=== PATIENT | male | born 1995 | race Caucasian/White ===

== ENCOUNTER 2017-01-15 13:57 | Emergency (ER) | payer BC ==
--- NOTE | 2017-01-15 14:16 | EDM.PDOC ---
ED HPI GENERAL MEDICAL PROBLEM - General Chief Complaint: Syncope Stated Complaint: DIZZY, PASSED OUT Time Seen by Provider: 01/15/17 14:16 Source of Information: Reports: Patient - History of Present Illness INITIAL COMMENTS - FREE TEXT/NARRATIVE: Patient is brought here to the ER today for evaluation for syncopal episode this morning around 10:30 AM. He is accompanied by his mother who drove him here. Patient reports that he was driving in the tractor and did start to feel lightheaded so he pulled over he feels that he passed out for approximately 30 seconds. He states that this has happened before, approximately 4 episodes in the last 18 months. Patient states that when he awoke he felt fairly normal except a little bit groggy/week. Patient denies any alcohol use recently but does drink this occasionally socially. Denies any caffeine use. Does use chewing tobacco. Does not use illicit drugs. He states that he did not eat much this morning, only had a granola bar approximately 20 ounces of water. - Related Data Allergies Allergy/AdvReac Type Severity Reaction Status Date / Time No Known Allergies Allergy Verified 01/15/17 14:54 Home Meds: Home Meds . [No Known Home Meds] 01/15/17 [History] ED ROS GENERAL - Review of Systems Review Of Systems: See Below Constitutional: Reports: Weakness. Denies: Fever, Chills, Diaphoresis, Decreased Appetite Respiratory: Reports: No Symptoms Cardiovascular: Reports: No Symptoms Endocrine: Reports: Fatigue, Low Glucose GI/Abdominal: Reports: No Symptoms Musculoskeletal: Reports: No Symptoms Skin: Reports: No Symptoms Neurological: Reports: Syncope. Denies: Confusion, Dizziness, Headache, Numbness, Paresthesia, Tingling, Tremors, Change in Speech Psychiatric: Reports: No Symptoms - Physical Exam Exam: See Below Exam Limited By: No Limitations General Appearance: Alert, WD/WN, No Apparent Distress Eye Exam: Right Eye: Normal Inspection, PERRL Ears: Normal External Exam, Normal Canal, Normal TMs Nose: Normal Inspection, Normal Mucosa Throat/Mouth: Normal Inspection, Normal Oropharynx Head Exam: Atraumatic, Normocephalic Respiratory/Chest: No Respiratory Distress, Lungs Clear, Normal Breath Sounds, No Accessory Muscle Use, Chest Non-Tender Cardiovascular: Normal Peripheral Pulses, Regular Rate, Rhythm, No Murmur GI/Abdominal: Normal Bowel Sounds, Soft, Non-Tender Neuro Exam (Abbreviated): Alert, Oriented, CN II-XII Intact, Normal Cognition, Normal Reflexes, No Motor/Sensory Deficits Psychiatric: Normal Affect, Normal Mood Skin Exam: Warm, Dry, Intact EKG INTERPRETATION EKG Date: 01/15/17 Rhythm: NSR Rate (Beats/Min): 66 EKG Interpretation Comments: Reviewed with Dr. Casiano Course - Vital Signs Last Recorded V/S: Last Vital Signs Temp 97.5 F 01/15/17 14:47 Pulse 63 01/15/17 14:47 Resp 18 01/15/17 14:47 BP 120/89 01/15/17 14:47 Pulse Ox 99 01/15/17 14:47 - Orders/Labs/Meds Orders: Active Orders 24 hr Category Date Time Status CXR [Chest 2V] [CR] Stat Exams 01/15/17 14:56 Taken DRUG SCREEN, URINE [URCHEM] Stat Lab 01/15/17 14:56 Uncollected Labs: Laboratory Tests 01/15/17 01/15/17 01/15/17 Range/Units 15:05 15:05 15:05 WBC 6.05 (4.23-9.07) K/mm3 RBC 5.67 (4.63-6.08) M/mm3 Hgb 16.9 (13.7-17.5) gm/L Hct 47.6 (40.1-51.0) % MCV 84.0 (79.0-92.2) fl MCH 29.8 (25.7-32.2) pg MCHC 35.5 (32.2-35.5) g/dl RDW Std Deviation 36.4 (35.1-43.9) fL Plt Count 207 (163-337) K/mm3 MPV 10.7 (9.4-12.3) fl Neutrophils % (Manual) 60 (40-60) % Band Neutrophils % 0 (0-10) % Lymphocytes % (Manual) 31 (20-40) % Atypical Lymphs % 0 % Monocytes % (Manual) 9 (2-10) % Eosinophils % (Manual) 0 L (0.8-7.0) % Basophils % (Manual) 0 L (0.2-1.2) Platelet Estimate Adequate RBC Morph Comment Normal Sodium 138 (136-145) mEq/L Potassium 4.2 (3.5-5.1) mEq/L Chloride 101 (98-107) mEq/L Carbon Dioxide 29 (21-32) mEq/L Anion Gap 12.2 (5-15) BUN 12 (7-18) mg/dL Creatinine 1.0 (0.7-1.3) mg/dL Est Cr Clr Drug Dosing 133.58 mL/min Estimated GFR (MDRD) > 60 (>60) mL/min BUN/Creatinine Ratio 12.0 L (14-18) Glucose 89 (74-106) mg/dL Calcium 9.4 (8.5-10.1) mg/dL Magnesium 2.3 (1.8-2.4) mg/dl Total Bilirubin 1.0 (0.2-1.0) mg/dL AST 27 (15-37) U/L ALT 57 (16-63) U/L Alkaline Phosphatase 57 (46-116) U/L Troponin I < 0.017 (0.00-0.056) ng/mL C-Reactive Protein < 0.2 (<1.0) mg/dL Total Protein 8.7 H (6.4-8.2) g/dl Albumin 4.8 (3.4-5.0) g/dl Globulin 3.9 gm/dL Albumin/Globulin Ratio 1.2 (1-2) Ethyl Alcohol 0.00 (0.00) gm% Meds: Medications Discontinued Medications Generic Name Dose Route Start Last Admin Trade Name Freq PRN Reason Stop Dose Admin Sodium Chloride 1,000 mls @ 999 mls/hr 01/15/17 14:56 01/15/17 15:10 Normal Saline IV 01/15/17 15:56 999 mls/hr ONETIME ONE Administration - Re-Assessments/Exams Free Text/Narrative Re-Assessment/Exam: Patient reports being asymptomatic on examination, no neck abnormalities found on initial exam. Bedside glucose was 66 patient was given orange juice to drink and we'll recheck this. EKG demonstrates normal sinus rhythm with a rate of 66. 01/15/17 15:26 Patient reports feeling completely normal after drinking the orange juice, is getting IV fluids as well. He denies any symptoms of weakness or dizziness and is requesting discharge. Neurologic exam is completely normal. CBC and CMP are unremarkable. Glucose did come up to 89 with the orange juice. CRP is <0.2. Will get him a dinner tray and if he is feeling well can discharge him after this. I do suspect the patient's syncopal episode today was related to hypoglycemia and not eating this morning as well as some dehydration. As this has happened on more than one occasion I do recommend further follow-up with his PCP. When discussing this with patient and his mother she mentions that he has a history of "something in his heart" when he was little. Will schedule him for an echocardiogram and he will follow up with PCP for these results 1-2 days after the echo or he may certainly return to ER at any point if needed. He also needs to monitor his diet, ensure that he is eating breakfast including protein every morning. 01/15/17 16:15 Departure - Departure Time of Disposition: 16:48 Disposition: Home, Self-Care 01 Condition: Good Clinical Impression: Hypoglycemia Syncope Qualifiers: Syncope type: unspecified Qualified Code(s): R55 - Syncope and collapse - Discharge Information Instructions: Syncope, [id number] Referrals: Susan Herrera, [facility] [Primary Care Provider] - Additional Instructions: You need to eat a balanced 3 meals every day including breakfast with protein. Increase oral fluid intake. Call [phone] to schedule echocardiogram of your heart and follow-up with Susan Hererra 1-2 days after this to discuss results and further treatment. You may return to ER if needed. - My Orders Last 24 Hours: My Active Orders 01/15/17 14:56 CXR [Chest 2V] [CR] Stat DRUG SCREEN, URINE [URCHEM] Stat - Assessment/Plan Last 24 Hours: My Active Orders 01/15/17 14:56 CXR [Chest 2V] [CR] Stat DRUG SCREEN, URINE [URCHEM] Stat
[2017-01-15] MEDS ORDERED: Sodium Chloride 0.9% 1,000 ML IV ONE (14:56)
[2017-01-15 17:02] VITALS: BP 130/78
--- NOTE | 2017-01-17 10:04 | CR ---
Chest: Two views of the chest were obtained. Comparison: No previous chest x-ray. Heart size and mediastinum are normal. Lungs are clear. Bony structures are within normal limits for the patient's age. Impression: 1. Nothing acute is identified on two-view chest x-ray. Diagnostic code #1
== END 2017-01-15 17:02 | disposition home or self-care (01) ==
LOC: JD.ED 13:57
DX: E16.2 Hypoglycemia, unspecified (principal); R55 Syncope and collapse
CPT/HCPCS: 36415; 71020; 80053; 82962; 83735; 84484; 85025; 86140; 96360; 99284; G0480; J7040; 99283

== ENCOUNTER 2022-07-26 23:45 | Emergency (ER) | payer BC ==
[2022-07-27 00:03] VITALS: BP 151/96; PULSE 58
[2022-07-27] MEDS ORDERED: HYDROmorphone 1 MG/ML Syringe IVPUSH STA (02:46)
[2022-07-27] MEDS ORDERED: Ketorolac 15 MG/ML SDV IVPUSH ONE (02:46)
[2022-07-27] MEDS ORDERED: Sodium Chloride 0.9% 1,000 ML IV ONE (02:46)
[2022-07-27] MEDS ORDERED: Ondansetron 4 MG/2 ML SDV IVPUSH ONE (02:46)
== END 2022-07-27 06:38 | disposition home or self-care (01) ==
LOC: JD.ED 23:45
DX: N13.2 Hydronephrosis with renal and ureteral calculous obstruction (principal)
CPT/HCPCS: 36415; 74176; 80053; 81001; 85025; 96361; 96374; 96375; 99284; J1170; J1885; J2405; J7030